=== PATIENT | female | born 1985 | race Caucasian/White ===

== ENCOUNTER → 2017-11-30 14:36 | Outpatient (CLI) | payer MEDICAID, SELFPAY ==
--- NOTE | 2017-11-30 14:42 | RAD_ITS ---
STUDY: X-RAY - ABDOMEN/PELVIS REASON FOR EXAM: Female, 32 years old. Kidney stones. Bilateral flank pain TECHNIQUE: Two AP supine views of the abdomen and pelvis. COMPARISON: None. FINDINGS: Normal visualized lung bases. There is an unremarkable bowel gas pattern. There is no demonstrated free abdominal air. In the region of the right renal shadow laterally, there are 2 ovoid calcific densities, measuring 9 mm. These could represent renal stones versus calcifications within the colon. No definitive stones on the left side. Normal soft tissue structures. Normal visualized osseous structures. RAD/Abdomen Single View IMPRESSION: Appearance of possible right-sided nephrolithiasis. No definite left-sided nephrolithiasis. Consider CT abdomen and pelvis to further evaluate Electronically Signed: Lalo Tanner DO at 15:26 EST Tel , Service support ,
== END ==
PROVIDERS: Family Provider Family Medicine; PCP Family Medicine; Visit Provider Urology
DX: N20.0 Calculus of kidney (principal)
CPT/HCPCS: 74018

== ENCOUNTER 2017-12-03 12:40 | Day surgery (SDC) | payer MEDICAID, SELFPAY ==
[2017-12-03] VITALS (8 sets, daily range): BP systolic 99–126; BP diastolic 60–85; PULSE 69–83; RESP 16; TEMP 36.2–36.5; O2SAT 96–98
--- NOTE | 2017-12-03 16:16 | PCM.DC.URO ---
Discharge Diet: Light diet - advance as tolerated Discharge Activity: No Restrictions, May not drive while taking narcotic pain medications. Call your doctor if your incision/area has: Continuous Slow Oozing, Sudden Increased Bleeding, Increased Pain/ Swelling, Increased Redness, Foul Smelling Discharge, Swelling at the incision site Call your doctor if you observe: Fever of 101 or Higher Instructions: Ureteral Stents, Treating Kidney Stones: Ureteroscopic Stone Removal Allergies/Adverse Reactions: Allergies Penicillins [PCN] Allergy (Verified 06/12/15 23:39) Anaphylaxis Medications to take at Discharge Metoprolol Succinate 25 mg PO BID 12/02/17 Sertraline HCl [Zoloft] 12.5 mg PO QHS 12/02/17 Ciprofloxacin [Cipro] 500 mg PO BID #6 tab 12/03/17 Hydrocodone/Acetaminophen [[place] 5-325 Tablet] 1 ea PO Q4H PRN PRN 6 Days #20 tab 12/03/17 Phenazopyridine HCl [Pyridium] 100 mg PO TID #20 tab 12/03/17 The following prescriptions were given: Hydrocodone/Acetaminophen [[place] 5-325 Tablet] 1 ea PO Q4H PRN PRN 6 Days #20 tab PRN Reason: Pain Ciprofloxacin [Cipro] 500 mg PO BID #6 tab Phenazopyridine HCl [Pyridium] 100 mg PO TID #20 tab Primary Care Physician: Ramone Barr MD [Primary Care Provider] - Please Follow Up With: Lewis Lombardo MD - do not pull sting on stent. When: Next December 09 at 10:45 am to remove stent.
--- NOTE | 2017-12-03 16:20 | DCINST_ITS ---
Discharge Diet: Light diet - advance as tolerated Discharge Activity: No Restrictions, May not drive while taking narcotic pain medications. Call your doctor if your incision/area has: Continuous Slow Oozing, Sudden Increased Bleeding, Increased Pain/ Swelling, Increased Redness, Foul Smelling Discharge, Swelling at the incision site Call your doctor if you observe: Fever of 101 or Higher Instructions: Ureteral Stents, Treating Kidney Stones: Ureteroscopic Stone Removal Allergies/Adverse Reactions: Allergies Penicillins [PCN] Allergy (Verified 06/12/15 23:39) Anaphylaxis Medications to take at Discharge Metoprolol Succinate 25 mg PO BID 12/02/17 Sertraline HCl [Zoloft] 12.5 mg PO QHS 12/02/17 Ciprofloxacin [Cipro] 500 mg PO BID #6 tab 12/03/17 Hydrocodone/Acetaminophen [[place] 5-325 Tablet] 1 ea PO Q4H PRN PRN 6 Days #20 tab 12/03/17 Phenazopyridine HCl [Pyridium] 100 mg PO TID #20 tab 12/03/17 The following prescriptions were given: Hydrocodone/Acetaminophen [[place] 5-325 Tablet] 1 ea PO Q4H PRN PRN 6 Days #20 tab PRN Reason: Pain Ciprofloxacin [Cipro] 500 mg PO BID #6 tab Phenazopyridine HCl [Pyridium] 100 mg PO TID #20 tab Primary Care Physician: Ramone Barr MD [Primary Care Provider] - Please Follow Up With: Lewis Lombardo MD - do not pull sting on stent. When: Next December 09 at 10:45 am to remove stent.
--- NOTE | 2017-12-03 16:24 | EKG12_ITS ---
Test Reason : POST OP Blood Pressure : / mmHG Vent. Rate : 081 BPM Atrial Rate : 081 BPM P-R Int : 188 ms QRS Dur : 086 ms QT Int : 396 ms P-R-T Axes : 061 053 031 degrees QTc Int : 460 ms Normal sinus rhythm Normal ECG No previous ECGs available Confirmed by FILIPE LEE, LYNETTE ([id number]), editor dictionary SHIVA REDMOND ([id number]) on 12/08/2017 1:50:26 PM Referred By: Lewis Lombardo Confirmed By:LYNETTE DENT MD
--- NOTE | 2017-12-03 16:27 | OP.PCM_ITS ---
Problem List (1) Left ureteral calculus Status: Acute (2) Right kidney stone Status: Acute (3) Calyceal diverticulum of kidney Status: Acute Report of Operation Date of Procedure: 12/03/17 Pre-Operative Diagnosis: Left ureteral calculi causing high-grade obstruction and pain, right renal calculi ?2 within a right calyceal diverticulum causing intermittent pain and obstruction. Post-Operative Diagnosis: Same. Surgery/Procedure Performed:: Cystoscopy, left retrograde pyelogram, balloon dilation of the left ureter, left ureteroscopy laser of stone no stent placed. Right retrograde pyelogram, balloon dilation of the right ureter, incision of calyceal diverticulum, laser lithotripsy of stones within diverticulum, and right stent placement. Description of Surgical Findings:: 32-year-old female who presents to the office with severe left flank pain CT scan demonstrates a stone obstructing the distal left ureter causing hydronephrosis and high-grade obstruction and pain. She was not able to pass the stone spontaneously. So today we plan to take her surgery to remove the stone. 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 I explained to the patient the stones will be within a diverticulum. She will need a stent on the right side. 32-year-old female was taken back to the operating room at the smooth induction of general anesthesia she was placed in dorsal lithotomy position, went into the bladder with a 21 Iranian rigid cystourethroscope, identified the left ureteral orifice, advanced a wire and wire hit the stone would not go past it, I then used a balloon dilator and the wire and the stent was able to complete manipulate the wire passed the stone. I then balloon dilated the distal left ureter up to the stone but not through the stone. I left the wire in place and then next to the wire I went in with a SlimLine rigid ureteroscope. Did a retrograde pyelogram could see the stone. I then used 270 ?m laser fiber and laser the stone little tiny pieces and then flushed all the pieces into the bladder. Since unable to get the ureter quite easily with minimal dilation no stones were left decided not to leave a stent on the left side. I then turned my attention to the right side she had 2 stones within a diverticulum in the right side advanced a wire up the ureter next to the wire I advanced the balloon dilator and dilated the distal ureter with a 12 Iranian by 15 cm balloon dilator once this was dilated then I left the wire in place and then as a safety wire and then next the wire went in with a flexible ureteroscope was able to get up to the kidney I inspected the upper pole midpole and lower pole no obvious stones are seen and then under fluoroscopy could see a stone fragments. I did retrograde pyelogram and could see contrast going through a small pinhole opening within the pelvis into a pocket which is a calyceal diverticulum with the stones were embedded I was then able get a wire into the diverticulum to the wire is able to get the flexible scope and then I treated the stones using laser lithotripsy took quite some time to break of the stone little tiny pieces and then at the end I then used the laser to laser open the infundibulum of the calyceal diverticulum to open up nicely all the stones then flushed out of the diverticulum and then worked my way down the ureter and then I backloaded the stent over the safety wire place a stent up into the kidney once a stent was in good position pulled the wire and the stent coiled in the kidney bladder good position left the string of the stent for easy extraction in about a week. Patient's anesthetic was reversed plan to see her back next to remove the stent. Type of Anesthesia:: General Drains: stent. - Admit VTE Documentation VTE Present on Admission: No VTE Mechan Device Prophylaxis: SCD's VTE Pharm Prophylaxis ordered?: No Reason prophylaxis not ordered:: Treatment Not Indicated
[2017-12-03 16:54] LABS: Albumin, Serum 3.4 g/dL (3.2-5.0)
[2017-12-03 17:02] LABS: Anion Gap 5 (5-15); BUN 8 mg/dL (7-18); BUN/Creat Ratio 14.7 RATIO (10-20); Calcium,Total 8.3 mg/dL (8.5-10.1); Chloride 110 mmol/L (98-107); Creatinine, Serum 0.54 mg/dL (0.55-1.02); EST Glomerular Filtration Rate 136 mL/min (>60); Est Glom Filt Rate - Afr Amer 164 mL/min (>60); Glucose 88 mg/dL (74-106); Magnesium 2.5 mg/dL (1.6-2.6); Potassium 4.3 mmol/L (3.5-5.1); Sodium Level 143 mmol/L (136-145)
[2017-12-03] MEDS: HYDROcodone Bitartrate/Apap 5/325 Tablet PO (18:22)
== END 2017-12-03 18:49 | disposition home or self-care (01) ==
LOC: SDC 12:41 → AC 12:42 → ACINP 12:46 → AC 14:34
PROVIDERS: Anesthesiology; Family Provider Family Medicine; PCP Family Medicine; Visit Provider Urology
PROC: 0TJ98ZZ Inspection of Ureter, Via Natural or Artificial Opening Endoscopic (ICD-10-PCS; CPT 52352; principal; 2017-12-03 15:10)
DX: N13.2 Hydronephrosis with renal and ureteral calculous obstruction (principal); E11.9 Type 2 diabetes mellitus without complications; F32.9 Major depressive disorder, single episode, unspecified; Z87.442 Personal history of urinary calculi; F17.200 Nicotine dependence, unspecified, uncomplicated
CPT/HCPCS: 52353; 76000; 80048; 82040; 83735; 84484; 93005; J3010; J7120; C1769; C2617; J2405; J3475

== ENCOUNTER → 2017-12-14 10:17 | Outpatient (CLI) | payer MEDICAID, SELFPAY ==
--- NOTE | 2017-12-14 10:21 | CT_ITS ---
STUDY: CT ABDOMEN AND PELVIS WITHOUT CONTRAST REASON FOR EXAM: Female, 32 years old. Right flank pain. Hematuria. Recent lithotripsy. RADIATION DOSAGE (If Supplied By Facility): CTDIvol = ( 9.53 ) mGy, DLP = ( 535.75 ) mGycm TECHNIQUE: Transaxial images were obtained from the dome of the diaphragm to the symphysis pubis without oral contrast, and without intravenous contrast. Sagittal and coronal images were reconstructed. Individualized dose optimization techniques were used for this CT. COMPARISON: None. FINDINGS: The visualized lung bases are unremarkable. The visualized portions of the heart are within normal limits. Normal liver. Normal gallbladder and extrahepatic biliary system. Normal spleen. Normal pancreas. Normal bilateral adrenal glands. Right kidney shows perinephric stranding and mild hydronephrosis. There is mild hydroureter down to the bladder. No definite ureteral stones are seen. There are nonobstructing stones of the mid right kidney with the largest measuring as much as 6 mm. Normal left kidney. Evaluation of the GI tract is limited by absence of oral contrast. Cannot exclude stomach wall thickening. No dilated loops of bowel or evidence for obstruction. Cannot exclude segmental thickening of the kinney of the small or large bowel. Cannot exclude enteritis or colitis. Moderate diffuse fecal retention. Diverticulosis without definite diverticulitis. Appendix within normal limits. Normal abdominal aorta. Normal inferior vena cava. Normal retroperitoneum. Normal urinary bladder. There is absence of the uterus consistent with a prior hysterectomy. Normal abdominal wall. Normal osseous structures. CT/Abdomen/Pelvis without Cont IMPRESSION: Hydronephrosis and hydroureter on the right but no definite ureteral stones are seen. Findings could represent stricture or spasm. There are nonobstructing stones in the mid right kidney. Electronically Signed: Peter Cardenas MD at 10:59 EDT , Service support ,
== END ==
PROVIDERS: Family Provider Family Medicine; PCP Family Medicine; Visit Provider Urology
DX: N20.0 Calculus of kidney (principal)
CPT/HCPCS: 74176

== ENCOUNTER → 2017-12-20 18:30 | Outpatient (CLI) | payer MEDICAID, SELFPAY | PROVIDERS: Family Provider Family Medicine; PCP Family Medicine; Visit Provider Urology | DX: N39.0 Urinary tract infection, site not specified (principal); R31.9 Hematuria, unspecified | CPT/HCPCS: 87086; 87088 ==

== ENCOUNTER → 2018-01-17 13:48 | Outpatient (CLI) | payer MEDICAID, SELFPAY ==
[2018-01-17 15:39] LABS: Anion Gap 5 (5-15); BUN 11 mg/dL (7-18); BUN/Creat Ratio 17.5 RATIO (10-20); Calcium,Total 8.4 mg/dL (8.5-10.1); Chloride 109 mmol/L (98-107); Creatinine, Serum 0.63 mg/dL (0.55-1.02); EST Glomerular Filtration Rate 114 mL/min (>60); Est Glom Filt Rate - Afr Amer 138 mL/min (>60); Glucose 84 mg/dL (74-106); PTHIN 52.3 pg/mL (18.4-80.1); Potassium 3.9 mmol/L (3.5-5.1); Sodium Level 141 mmol/L (136-145)
== END ==
PROVIDERS: Family Provider Family Medicine; PCP Family Medicine; Visit Provider Urology
DX: N20.0 Calculus of kidney (principal)
CPT/HCPCS: 36415; 80048; 83735; 83970

== ENCOUNTER → 2018-04-26 09:25 | Outpatient (CLI) | payer BC, MEDICAID, SELFPAY ==
--- NOTE | 2018-04-26 09:28 | RAD_ITS ---
STUDY: X-RAY - ABDOMEN/PELVIS REASON FOR EXAM: Female, 33 years old. Abdominal pain, history of kidney stones TECHNIQUE: Two AP supine views of the abdomen and pelvis. COMPARISON: CT 12/14/2017 FINDINGS: Normal visualized lung bases. There is an unremarkable bowel gas pattern. There is no demonstrated free abdominal air. The visualized liver, spleen and kidneys are grossly normal in size and morphology. There is a 4 mm calcification projecting over the midpole of the right kidney. Normal visualized osseous structures. Phleboliths are seen within the pelvis. RAD/Abdomen Single View IMPRESSION: Right renal calculus. Nonobstructive abdominal bowel gas pattern. Electronically Signed: Mirza Medellin DO at 12:09 EDT Tel , Service support ,
== END ==
PROVIDERS: Family Provider Family Medicine; PCP Family Medicine; Visit Provider Urology
DX: N20.0 Calculus of kidney (principal)
CPT/HCPCS: 74018

== ENCOUNTER 2018-04-29 10:36 | Day surgery (SDC) | payer BC, MEDICAID, SELFPAY ==
[2018-04-29] VITALS (10 sets, daily range): BP systolic 82–112; BP diastolic 51–70; PULSE 47–74; RESP 16; TEMP 36.4–37.1; O2SAT 92–100; BMI 26.4
[2018-04-29] MEDS: Ciprofloxacin 400 MG/200 ML BAG 200 MG IV (11:34)
--- NOTE | 2018-04-29 13:45 | OP.PCM_ITS ---
Report of Operation Date of Procedure: 04/29/18 Pre-Operative Diagnosis: Right kidney stone Post-Operative Diagnosis: Same Surgery/Procedure Performed:: Right extracorporeal shockwave lithotripsy Description of Surgical Findings:: 33-year-old female taken back to the operating room at the smooth induction of general anesthesia she was placed supine on the table, we then located the stone in the upper pole the right kidney and we used the shockwave machine to identify the stone location we put the stone in the F2 focal point of the shockwave machine and then delivered a total of 3000 shockwaves at a rate of 90/ s power up to 6 and 7 stone fracture and the little tiny pieces at the end of the treatment cycle appear to be successful treatment. No stent was placed patient's anesthesia was reversed is taken back to PACU in good condition she will follow-up in a few weeks with a KUB. Type of Anesthesia:: General Drains: none - Admit VTE Documentation VTE Present on Admission: No VTE Mechan Device Prophylaxis: SCD's VTE Pharm Prophylaxis ordered?: No Reason prophylaxis not ordered:: Treatment Not Indicated
--- NOTE | 2018-04-29 15:41 | DCINST_ITS ---
Discharge Diet: Light diet - advance as tolerated Discharge Activity: Return to Normal Activity Instructions: Shock Wave Lithotripsy Allergies/Adverse Reactions: Allergies coconut Allergy (Verified 04/29/18 11:04) Food Allergy Penicillins [PCN] Allergy (Verified 04/29/18 11:04) Anaphylaxis bupropion [From Wellbutrin] Adverse Reaction (Verified 04/29/18 11:04) Other Medications to take at Discharge Metoprolol Succinate 50 mg PO BID 12/02/17 Sertraline HCl [Zoloft] 12.5 mg PO QHS 12/02/17 Hydrocodone/Acetaminophen [[place] 5-325 Tablet] 1 ea PO Q4H PRN PRN 6 Days #20 tab 12/03/17 Ciprofloxacin [Cipro] 500 mg PO BID 04/27/18 Hydrocodone/Acetaminophen [[place] 5-325 Tablet] 1 ea PO Q4H PRN PRN 7 Days #20 tab 04/29/18 The following prescriptions were given: Hydrocodone/Acetaminophen [[place] 5-325 Tablet] 1 ea PO Q4H PRN PRN 7 Days #20 tab PRN Reason: Pain Primary Care Physician: Ramone Barr MD [Primary Care Provider] - Test Results: Test results from this visit will be discussed in further detail at your follow- up appointment, if applicable. Please Follow Up With: Lewis Lombardo MD When: please call to make an appointment.
== END 2018-04-29 16:07 | disposition home or self-care (01) ==
LOC: SDC 10:37 → AC 10:41
PROVIDERS: Family Provider Family Medicine; PCP Family Medicine; Visit Provider Urology
PROC: (CPT 50590; principal; 2018-04-29 12:35)
DX: N20.0 Calculus of kidney (principal); I10 Essential (primary) hypertension; E11.9 Type 2 diabetes mellitus without complications; F32.9 Major depressive disorder, single episode, unspecified; Z87.442 Personal history of urinary calculi; F17.210 Nicotine dependence, cigarettes, uncomplicated
CPT/HCPCS: 50590; J7120; J0744; J2405